=== PATIENT | female | born 1955 | race Asian ===

== ENCOUNTER 2019-09-02 15:59 | Inpatient (IN) | payer OTHER ==
[~2019-09-02] VITALS: Ht 162.6 cm; Wt 49.9 kg
[2019-09-02 16:15] VITALS: Ht 162.6 cm; Wt 49.9 kg
[2019-09-02 17:01] LABS: BASOPHIL % 0.7 % (0-2); PLATELET COUNT 249 x10^3mcL (130-400); RED CELL DISTRIBUTION WIDTH 12.8 % (11.5-14.5)
[2019-09-02 17:16] LABS: CALCIUM 9.6 mg/dL (8.5-10.1); CHLORIDE SERUM 106 mmol/L (98-107); CREATININE SERUM 0.8 mg/dL (0.6-1.0); GFR1 > 60 mL/min; GLUCOSE SERUM 98 mg/dL (74-106); POTASSIUM SERUM 4.4 mmol/L (3.5-5.1); SODIUM SERUM 144 mmol/L (136-145)
[2019-09-02 17:21] LABS: ALBUMIN 3.8 g/dL (3.4-5.0); ALKALINE PHOSPHATASE 93 U/L (46-116); ALT/SGPT 49 U/L (14-59); AST/SGOT 31 U/L (15-37); BILIRUBIN TOTAL 0.94 mg/dL (0.20-1.00); LIPASE 100 IU/L (73-393); TOTAL PROTEIN, SERUM 7.9 g/dL (6.4-8.2)
[2019-09-03 00:56] LABS: T3 TOTAL 0.99 ng/mL
[2019-09-03 01:26] LABS: CHOLESTEROL/HDL RATIO 3.3
[2019-09-03 01:48] LABS: microscopic required? YES; urine erythrocyte TRACE (NEGATIVE)
[2019-09-03 02:02] LABS: AMPHETAMINE QUAL UR NONE DETECTED (See below)
[2019-09-03 02:25] LABS: FREE T4 1.02 ng/dL (0.76-1.46); FREE THYROXINE INDEX 3.6 ug/dL (1.4-4.5); T4(THYROXINE) 9.8 ug/dL (4.7-13.3)
[2019-09-03 02:43] VITALS: BP 140/85
[2019-09-03 05:54] VITALS: BP 121/65
[2019-09-03 07:02] LABS: BASOPHIL % 0.6 % (0-2); PLATELET COUNT 205 x10^3mcL (130-400); RED CELL DISTRIBUTION WIDTH 12.9 % (11.5-14.5)
[2019-09-03 07:08] LABS: CALCIUM 8.2 mg/dL (8.5-10.1); CARBON DIOXIDE 28.6 mmol/L (21-32); CHLORIDE SERUM 107 mmol/L (98-107); CREATININE SERUM 0.8 mg/dL (0.6-1.0); GFR1 > 60 mL/min; GLUCOSE SERUM 91 mg/dL (74-106); MAGNESIUM 2.2 mg/dL (1.8-2.4); POTASSIUM SERUM 3.9 mmol/L (3.5-5.1); SODIUM SERUM 144 mmol/L (136-145)
[2019-09-03 09:08] VITALS: BP 114/68
[2019-09-03 12:11] VITALS: BP 115/68
[2019-09-03 16:34] VITALS: BP 110/69
[2019-09-03 20:46] VITALS: BP 108/72
[2019-09-04 04:24] VITALS: BP 121/74
[2019-09-04 07:19] LABS: BASOPHIL % 0.6 % (0-2); PLATELET COUNT 197 x10^3mcL (130-400)
[2019-09-04 07:31] LABS: CARBON DIOXIDE 25.2 mmol/L (21-32); CHLORIDE SERUM 111 mmol/L (98-107); CREATININE SERUM 0.8 mg/dL (0.6-1.0); GFR1 > 60 mL/min; GLUCOSE SERUM 94 mg/dL (74-106); MAGNESIUM 2.1 mg/dL (1.8-2.4); PHOSPHOROUS 3.8 mg/dL (2.5-4.9); POTASSIUM SERUM 3.7 mmol/L (3.5-5.1); SODIUM SERUM 146 mmol/L (136-145)
[2019-09-04 09:16] VITALS: BP 115/70
[2019-09-04 12:35] VITALS: BP 108/58
[2019-09-04 17:06] VITALS: BP 124/69
[2019-09-04 20:39] VITALS: BP 127/74
[2019-09-05 05:50] VITALS: BP 129/75
[2019-09-05 06:21] LABS: BASOPHIL % 0.7 % (0-2); PLATELET COUNT 198 x10^3mcL (130-400); RED CELL DISTRIBUTION WIDTH 12.8 % (11.5-14.5)
[2019-09-05 06:58] LABS: CALCIUM 8.4 mg/dL (8.5-10.1); CARBON DIOXIDE 26.7 mmol/L (21-32); CHLORIDE SERUM 110 mmol/L (98-107); CREATININE SERUM 0.7 mg/dL (0.6-1.0); GFR1 > 60 mL/min; GLUCOSE SERUM 80 mg/dL (74-106); POTASSIUM SERUM 3.8 mmol/L (3.5-5.1); SODIUM SERUM 144 mmol/L (136-145)
[2019-09-05 08:34] VITALS: BP 116/59
[2019-09-05 13:51] VITALS: BP 116/68
[2019-09-05 18:17] VITALS: BP 120/70
[2019-09-05 19:51] VITALS: BP 124/70
[2019-09-06 05:49] VITALS: BP 97/60
[2019-09-06 08:26] VITALS: BP 97/55
[2019-09-06] MEDS ORDERED: LIPI10 PO (11:33)
[2019-09-06] MEDS ORDERED: METP PO (11:34)
[2019-09-06 12:44] VITALS: BP 108/61
[2019-09-06 13:08] VITALS: BP 108/61
== END 2019-09-06 14:20 | disposition home or self-care (01) | DRG 249 ==
LOC: ED 15:59 → MU 23:11
PROVIDERS: Emergency Medicine; Internal Medicine Gastroenterology; ADMIT Internal Medicine
PROC: 0DJD8ZZ Inspection of Lower Intestinal Tract, Via Natural or Artificial Opening Endoscopic (ICD-10-PCS; principal; 2019-09-06 08:00)
DX: A08.4 Viral intestinal infection, unspecified (principal); D64.9 Anemia, unspecified; K64.8 Other hemorrhoids; K21.9 Gastro-esophageal reflux disease without esophagitis; E78.5 Hyperlipidemia, unspecified; Z91.013 Allergy to seafood
CPT/HCPCS: 45378; 83880; 84439; 87046; 87046-59; G0378; J0744; J1200; J1610; J1956; J2250; J2310; J3010; J3490; J7030; Q9967